=== PATIENT | male | born 1985 | race African-American/Black ===

== ENCOUNTER 2019-03-04 18:18 | Emergency (ER) | payer SELFPAY ==
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
[2019-03-04 19:08] LABS: ABS Lymphocytes 1.1 10^3/ul (1.0-4.8); ABS Monocytes 0.6 10^3/ul (0-0.8); ABS Neutrophils 7.3 10^3/ul (1.5-7.7); Eosinophil % 0.2 %; Hematocrit 44 % (42-52); Mean Corpuscular HGB Conc 34 g/dL (31-36); Mean Corpuscular Hemoglobin 32 pg (27-31); Mean Corpuscular Volume 95 fL (80-94); Mean Platelet Volume 9.9 fL (7.4-10.4); Nucleated Red Blood Cells % 0.1; Platelet Count 177 10^3/uL (150-450); Red Blood Count 4.68 10^6 /uL (4.18-5.48); Red Cell Distribution Width 14 % (10-15); White Blood Count 9.1 10^3/uL (3.5-10.8)
[2019-03-04 19:25] LABS: ALT 14 U/L (7-52); Albumin 4.8 g/dL (3.2-5.2); Albumin/Globulin Ratio 1.8 (1-3); Alkaline Phosphatase 55 U/L (34-104); BUN/Creatinine Ratio 10.1 (8-20); Blood Urea Nitrogen 10 mg/dL (6-24); CO2 Carbon Dioxide 32 mmol/L (22-32); Calcium 10.1 mg/dL (8.6-10.3); Chloride 104 mmol/L (101-111); EGFR African American 104.7 (>60); EGFR Non-African American 86.5 (>60); Globulin 2.7 g/dL (2-4); Glucose 84 mg/dL (70-100); Sodium 141 mmol/L (135-145); Total Protein 7.5 g/dL (6.4-8.9)
[2019-03-04 19:43] LABS: Acetaminophen < 15 mcg/mL; Alcohol < 10 mg/dL (<10); Salicylate < 2.50 mg/dL (<30)
[2019-03-04 19:59] LABS: TSH (Thyroid Stimulating Horm) 2.11 mcIU/mL (0.34-5.60)
[2019-03-04 20:10] LABS: Anion Gap 5 mmol/L (2-11); Potassium 3.7 mmol/L (3.5-5.0)
[2019-03-04 20:14] LABS: AST 25 U/L (13-39)
[2019-03-04 20:58] VITALS: BP 129/80
== END 2019-03-04 20:56 | disposition home or self-care (01) ==
LOC: ED 18:18
DX: F43.10 Post-traumatic stress disorder, unspecified (principal); F41.9 Anxiety disorder, unspecified
CPT/HCPCS: 36415; 80053; 80320; 80329; 84443; 85025; 99284; G0480

== ENCOUNTER 2019-07-21 19:31 | Emergency (ER) | payer SELFPAY ==
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
--- NOTE | 2019-07-21 21:18 | ED ---
Progress - Progress Note Progress Note: Patient is received as a sign-out from Dr. Vazquez to Dr. Esteves at shift change 2100, 07/21/2019 pending a MHE and disposition. Course/Dx - Course Course Of Treatment: Patient is received as a sign-out from Dr. Vazquez to Dr. Esteves at shift change 2100, 07/21/2019 pending a MHE and disposition. Dr. Edmonds, Psychologist, stated that the pt was suitable for discharge. He will be diagnosed with anxiety. - Diagnoses Provider Diagnoses: Anxiety - Provider Notifications Discussed Care Of Patient With: Ermelinda Edmonds Instructed by Provider To: Other - discharge Admit/Transition Orders Completed By ED Provider: Yes - Critical Care Time Critical Care Statement: Critical care time is provided exclusive of any time spent performing procedures. Discharge ED - Sign-Out/Discharge Documenting (check all that apply): Patient Departure - discharge , Receiving Sign-Out Receiving patient FROM: Cody Vazquez - Discharge Plan Condition: Stable Disposition: HOME Referrals: No Primary Care Phys,NOPCP [Primary Care Provider] - - Billing Disposition and Condition Condition: STABLE Disposition: Home - Attestation Statements Document Initiated by Scribe: Yes Documenting Scribe: Thad Spicer Provider For Whom Scribe is Documenting (Include Credential): Chin Esteves MD Scribe Attestation: Thad Hanks, edwarded for Chin Esteves MD on 07/22/19 at 0109. Scribe Documentation Reviewed: Yes Provider Attestation: The documentation as recorded by the Thad walls accurately reflects the service I personally performed and the decisions made by , Chin Esteves MD Status of Scribe Document: Viewed
[2019-07-21 21:32] LABS: Urine Appearance Clear; Urine Bilirubin Negative (Negative); Urine Blood Negative (Negative); Urine Color Straw; Urine Glucose Negative (Negative); Urine Ketones Negative (Negative); Urine Nitrite Negative (Negative); Urine Protein Negative (Negative); Urine Specific Gravity 1.005 (1.010-1.030); Urine Urobilinogen Negative (Negative)
[2019-07-21 21:35] LABS: Urine Benzodiazepine Screen None Detected (None Detect); Urine Opiates Screen None Detected (None Detect)
[2019-07-22 00:06] VITALS: BP 115/63
== END 2019-07-21 23:58 | disposition home or self-care (01) ==
LOC: ED 19:31
DX: F41.9 Anxiety disorder, unspecified (principal); F43.10 Post-traumatic stress disorder, unspecified; R41.9 Unspecified symptoms and signs involving cognitive functions and awareness; Z87.891 Personal history of nicotine dependence
CPT/HCPCS: 80307; 81003; 99284; G0480